=== PATIENT | male | born 1970 | race Caucasian/White ===

== ENCOUNTER 2017-02-07 15:36 | Emergency (ER) ==
[2017-02-07 15:37] VITALS: BMI 39.5
[2017-02-07 15:39] VITALS: BP 137/87; TEMP 99
[2017-02-07 16:05] LABS: BILIRUBIN,URINE Negative (NEGATIVE); KETONES,URINE Negative (NEGATIVE); LEUKOCYTE ESTERASE ,URINE Negative (NEGATIVE); NITRITE,URINE Negative (NEGATIVE); PH,URINE 5.5 (5-9); PROTEIN,URINE Negative (NEGATIVE); URINE, BLOOD Negative (NEGATIVE)
[2017-02-07 16:06] LABS: ADD URINE MICROSCOPIC NO
[2017-02-07 16:11] LABS: BASOPHILS % (AUTO) 0.6 % (0.0-3.0); EOSINOPHILS % (AUTO) 0.6 % (0.0-7.0); HEMATOCRIT 44.7 % (42.0-52.0); HEMOGLOBIN 15.5 g/dl (14.0-18.0); IMMATURE GRANULOCYTE % (AUTO) 0.4 % (0.0-5.0); LYMPHOCYTES % (AUTO) 63.3 (10.0-50.0); MEAN CORPUSCULAR HEMOGLOBIN 28.2 pg (27.0-31.0); MEAN CORPUSCULAR HGB CONC 34.7 (31.8-35.4); MEAN CORPUSCULAR VOLUME 81.4 fl (80.0-94.0); MONOCYTES # (AUTO) 0.8 K/uL (0.4-2.0); MONOCYTES % (AUTO) 16.2 (0-10); NEUTROPHILS # (AUTO) 0.9 K/ul (2.0-6.9); NEUTROPHILS % (AUTO) 18.9; PLATELET COUNT 171 10^3/uL (140-440); RED BLOOD COUNT 5.49 10^6/ul (4.70-6.10); WHITE BLOOD COUNT 4.69 K/ul (4.2-10.2)
--- NOTE | 2017-02-07 16:25 | DI ---
Exam: Chest two-view HISTORY: Cough. FINDINGS: Two views of the chest demonstrate moderately expanded lungs with no evidence of pneumoni a or edema. The heart is normal in size and configuration. The pulmonary vasculature is not conges ralph. The skeletal structures are intact. There are degenerative findings in the spine. IMPRESSION: No acute cardiopulmonary disease.
--- NOTE | 2017-02-07 16:29 | DI ---
Exam: Lumbar spine complete with obliques. HISTORY: Pain. Findings: Anterior, lateral, coned-down and bilateral oblique images of the lumbar spine are submit ralph. These demonstrate five [id number], lumbarized vertebrae with no compression fracture or l isthesis. There is multilevel mild degenerative disease. The facet joints appear grossly aligned a nd intact. The bowel gas pattern is nondilated. Impressions: Mild degenerative disease with no compression fracture or listhesis in the lumbar spin e.
[2017-02-07 16:34] LABS: ALBUMIN/GLOBULIN RATIO 1.11; ANION GAP 16.1; BILIRUBIN,TOTAL 0.62 mg/dL (0.00-1.20); BUN/CREATININE RATIO 10.75; CALCIUM 9.3 mg/dL (8.2-10.2); CREATININE 0.93 mg/dL (0.60-1.10); POTASSIUM 4.1 mmol/L (3.5-5.1); TOTAL PROTEIN 7.6 g/dL (6.4-8.2)
--- NOTE | 2017-02-07 17:26 | ED.PDOC ---
General ED Provider: Dr. HILDA CARLSON Chief Complaint: Cough Stated Complaint: cough, low back pain Time Seen by Physician: 15:40 Mode of Arrival: Walk-In Information Source: Patient Exam Limitations: No limitations Primary Care Provider: DEANA PERDOMO Nursing and Triage Documentation Reviewed and Agree: Yes Respiratory Complaint Exam - Respiratory Complaint/Exam Symptoms Are: Still present Timing: Constant Initial Severity: Moderate Current Severity: Moderate Location: Throat Character: Reports: Non-productive cough Aggravating: Reports: None Alleviating: Reports: Spontaneous resolution Associated Signs and Symptoms: Denies: Rapid breathing, Dyspnea, Fever, Chills, Chest pain, Pleuritic chest pain, Wheezing, Hemoptysis, Dizziness, Calf pain, Calf swelling, Edema, URI, Nasal congestion, Hoarseness, Sinus discomfort, Vomiting, Sore throat, Weight loss, Decreased oral intake, Increased thirst, Increased appetite, Increased urination Related History: Reports: Similar episode History of Healthcare-Acquired Pneumonia: No Related Surgical History: Reports: None Pulmonary Embolism Risk Factors: None Cardiac Risk Factors: Reports: Diabetes Pseudomonas Risk Factors: Reports: None Tuberculosis Risk Factors: Reports: None Status Asthmaticus Risk Factors: Reports: None Home Oxygen Use: No Recent Stress Test: No Recent Echo/LV Function: No Current Antibiotic Use: No Current Asthma Medication Use: No Respiratory Distress: None Inadequate Respiratory Effort: No Dysphagia Present: No Stridor Present: No JVD Present: No Retractions: Not Present Sinus Tenderness: None Grunting Respirations: No Kussmaul Respirations: No Differential Diagnoses: Pneumonia, Bronchitis (lumbar sprain) Review of Systems - Review Of Systems Constitutional: Reports: No symptoms Eyes: Reports: No symptoms Ears, Nose, Mouth, Throat: Reports: No symptoms Respiratory: Reports: Cough Cardiac: Reports: No symptoms GI: Reports: No symptoms : Reports: No symptoms Musculoskeletal: Reports: Back pain Skin: Reports: No symptoms Neurological: Reports: No symptoms Endocrine: Reports: No symptoms Hematologic/Lymphatic: Reports: No symptoms All Other Systems: Reviewed and Negative Past Medical History - Past Medical History Previously Healthy: No Endocrine: Reports: DM 2 Cardiovascular: Reports: Hypertension Respiratory: Reports: None Hematological: Reports: None Gastrointestinal: Reports: None Genitourinary: Reports: None Neuro/Psych: Reports: None Musculoskeletal: Reports: None Cancer: Reports: None - Surgical History General Surgical History: Reports: Unknown - Family History Family History: Reports: Unknown - Social History Smoking Status: Never smoker Hx Substance Use: No Alcohol Screening: Occasionally Physical Exam - Physical Exam Appearance: Well-appearing, No pain distress, Well-nourished Eyes: RENZO, EOMI, Conjunctiva clear ENT: Ears normal, Nose normal, Oropharynx normal Respiratory: Airway patent, Breath sounds clear, Breath sounds equal, Respirations nonlabored Cardiovascular: RRR, Pulses normal, No rub, No murmur GI/: Soft, Nontender, No masses, Bowel sounds normal, No Organomegaly Musculoskeletal: Normal strength, ROM intact, No edema, No calf tenderness Skin: Warm, Dry, Normal color Neurological: Sensation intact, Motor intact, Reflexes intact, Cranial nerves intact, Alert, Oriented Psychiatric: Affect appropriate, Mood appropriate Interpretation - Radiology Interpretation Radiology Interpretation By: Radiologist Radiology Results: No acute changes Critical Care Note - Critical Care Note Total Time (mins): 0 Course - Course Hematology/Chemistry: 02/07/17 16:06 02/07/17 16:06 Orders, Labs, Meds: Lab Review 02/07/17 02/07/17 15:50 16:06 WBC 4.69 RBC 5.49 Hgb 15.5 Hct 44.7 MCV 81.4 MCH 28.2 MCHC 34.7 RDW Coeff of Nori 12.1 Plt Count 171 Immature Gran % (Auto) 0.4 Neut % (Auto) 18.9 Lymph % (Auto) 63.3 H [place] % (Auto) 16.2 H Eos % (Auto) 0.6 Baso % (Auto) 0.6 Immature Gran # (Auto) 0.0 Neut # 0.9 L Lymph # 3.0 [place] # 0.8 Eos # 0.0 Baso # 0.0 Sodium 135 L Potassium 4.1 Chloride 97 L Carbon Dioxide 26 Anion Gap 16.1 BUN 10 Creatinine 0.93 Estimated GFR (MDRD) 88.00 BUN/Creatinine Ratio 10.75 Glucose 226 H Calcium 9.3 Total Bilirubin 0.62 AST 60 H ALT 76 Alkaline Phosphatase 72 Total Protein 7.6 Albumin 4.0 Globulin 3.6 Albumin/Globulin Ratio 1.11 Urine Color Yellow Urine Clarity Clear Urine pH 5.5 Ur Specific [place] 1.015 Urine Protein Negative Urine Glucose (UA) 2+ Urine Ketones Negative Urine Blood Negative Urine Nitrite Negative Urine Bilirubin Negative Urine Urobilinogen 0.2 Ur Leukocyte Esterase Negative Orders Category Date Time Status CBC W/ AUTO DIFF Stat LAB 02/07/17 16:06 Completed COMPREHENSIVE METABOLIC PANEL Stat LAB 02/07/17 16:06 Completed URINALYSIS C & S IF INDICATED Stat LAB 02/07/17 15:50 Completed CHEST, 2 VIEWS PA & LAT Stat RADS 02/07/17 15:48 Completed LUMBAR SPINE, MIN 4 VIEWS Stat RADS 02/07/17 15:48 Completed Vital Signs: Temp Pulse Resp BP Pulse Ox 02/07/17 15:37 99.0 F 103 H 20 137/87 93 L Departure - Departure Time of Disposition: 17:25 Disposition: HOME SELF-CARE Discharge Problem: Cough, Bronchitis Condition: Good Pt referred to PMD for follow-up: No Allergies/Adverse Reactions: Allergies No Known Allergies Allergy (Verified 02/07/17 15:39) Home Medications: Ambulatory Orders Aspirin [Aspirin Chewable] 81 mg PO DAILYWM 11/09/15 Glipizide 10 mg PO DAILY 11/09/15 Lisinopril 20 mg PO BID 11/09/15 Metformin HCl 1,000 mg PO BID 11/09/15 Metformin HCl [Glucophage] 500 mg PO DAILY 11/09/15 Dicyclomine HCl 20 mg PO BID 02/07/17 Ranitidine HCl [Zantac] 150 mg PO BIDAC 02/07/17
== END 2017-02-07 17:38 | disposition home or self-care (01) ==
LOC: ED 15:36
DX: J40 Bronchitis, not specified as acute or chronic (principal); E11.9 Type 2 diabetes mellitus without complications; I10 Essential (primary) hypertension; Z79.899 Other long term (current) drug therapy
CPT/HCPCS: 36415; 80053; 81001; 85025; 99283

== ENCOUNTER 2017-08-24 14:14 | Emergency (ER) ==
[2017-08-24 14:15] VITALS: BMI 39.5
[2017-08-24 14:23] VITALS: BP 164/96; TEMP 98.9
[2017-08-24] MEDS ORDERED: LIDOCAINE HCL 1% SDV SUBCUT STA (14:28)
--- NOTE | 2017-08-24 14:37 | ED.PDOC ---
General ED Provider: Dr. AMBROSE GIRALDO JR Chief Complaint: Finger Laceration Stated Complaint: Partial circumferential lac to end of left 2nd digit. Gapes. Bleeding controlled.[ End ]98.9 75 20 96% 164/96 10 Time Seen by Physician: 14:35 Mode of Arrival: Walk-In Information Source: Patient Exam Limitations: No limitations Primary Care Provider: DEANA PERDOMO Nursing and Triage Documentation Reviewed and Agree: No Review of Systems - Review Of Systems Constitutional: Reports: No symptoms Eyes: Reports: No symptoms Ears, Nose, Mouth, Throat: Reports: No symptoms Respiratory: Reports: No symptoms Cardiac: Reports: No symptoms GI: Reports: No symptoms : Reports: No symptoms Musculoskeletal: Reports: No symptoms Skin: Reports: Lesions (left index finger palmar laceration circumferential about 2/3) Neurological: Reports: No symptoms Endocrine: Reports: No symptoms Hematologic/Lymphatic: Reports: No symptoms All Other Systems: Other Past Medical History - Past Medical History Previously Healthy: No Endocrine: Reports: DM 2 Cardiovascular: Reports: Hypertension Respiratory: Reports: None Hematological: Reports: None Gastrointestinal: Reports: None Genitourinary: Reports: None Neuro/Psych: Reports: None Musculoskeletal: Reports: None Cancer: Reports: None - Surgical History General Surgical History: Reports: Unknown - Family History Family History: Reports: Unknown - Social History Smoking Status: Never smoker Hx Substance Use: No Alcohol Screening: Occasionally - Immunizations Tetanus Shot up to Date: No (2010) Physical Exam - Physical Exam Appearance: Well-appearing Pain Distress: Mild Neck: Supple Respiratory: Airway patent Skin: Warm, Dry Procedures - Laceration/Wound Repair No standard instances Wound Description: Linear Wound Length (cm): 2 Wound Explored: Clean Wound Irrigated: Yes Wound Prep: Hibiclens Anesthesia: Lidocaine Wound Debrided: Minimal Undermining: Minimal Wound Repaired With: Sutures Suture Size and Type: 4-0 prolene Number of Sutures: 5 Critical Care Note - Critical Care Note Total Time (mins): 0 Course - Course Orders, Labs, Meds: Orders Category Date Time Status Wound [ED WOUND CARE] .ONCE EMERGENCY 08/24/17 14:29 Active Diphth,Pertuss(Acell),Tet Vac [Boostrix] MEDS 08/24/17 14:41 Discontinued 0.5 ml IM .ONCE ONE Lidocaine HCl/Pf [Lidocaine HCl 1% Sdv] MEDS 08/24/17 14:28 Discontinued 5 ml SUBCUT ONCE STA Medications Discontinued Medications Generic Name Dose Route Start Last Admin Trade Name Keyonna PRN Reason Stop Dose Admin Diphtheria/Pertussis/Tetanus Vacc 0.5 ml 08/24/17 14:41 08/24/17 14:51 Boostrix IM 08/24/17 14:42 0.5 ml .ONCE ONE Administration Lidocaine HCl 5 ml 08/24/17 14:28 08/24/17 14:30 Lidocaine Hcl 1% Sdv SUBCUT 08/24/17 14:29 5 ml ONCE STA Administration Vital Signs: Temp Pulse Resp BP Pulse Ox 08/24/17 14:16 98.9 F 75 20 164/96 H 96 Departure - Departure Time of Disposition: 15:03 Disposition: HOME SELF-CARE Discharge Problem: Laceration of finger Instructions: Care For Your Stitches (ED), Laceration (ED), Finger Laceration ( ED) Condition: Good Pt referred to PMD for follow-up: Yes Additional Instructions: clean and dry for three days daily dressing change return if bleeds through three times sutures out in 7 days Allergies/Adverse Reactions: Allergies No Known Allergies Allergy (Verified 02/07/17 15:39) Home Medications: Ambulatory Orders Aspirin [Aspirin Chewable] 81 mg PO DAILYWM 11/09/15 Glipizide 10 mg PO DAILY 11/09/15 Lisinopril 20 mg PO BID 11/09/15 Metformin HCl 1,000 mg PO BID 11/09/15 Metformin HCl [Glucophage] 500 mg PO DAILY 11/09/15 Dicyclomine HCl 20 mg PO BID 02/07/17 Ranitidine HCl [Zantac] 150 mg PO BIDAC 02/07/17
[2017-08-24] MEDS ORDERED: BOOSTRIX IM ONE (14:41)
== END 2017-08-24 15:30 | disposition home or self-care (01) ==
LOC: ED 14:14
DX: S61.211A Laceration without foreign body of left index finger without damage to nail, initial encounter (principal); W45.8XXA Other foreign body or object entering through skin, initial encounter
CPT/HCPCS: 90471; 90715; 99283